=== PATIENT | female | born 1995 | race Caucasian/White ===

== ENCOUNTER 2017-12-18 20:18 | Emergency (ER) | payer SELFPAY ==
[2017-12-18] MEDS ORDERED: Ketorolac 30 MG/ML SDV ONE (20:58)
[2017-12-18] MEDS ORDERED: Ketorolac 30 MG/ML SDV IM ONE (21:12)
[2017-12-18] MEDS ORDERED: Methocarbamol 500 MG Tab ONE (21:50)
--- NOTE | 2017-12-18 22:11 | EDM.PDOC ---
ED HPI GENERAL MEDICAL PROBLEM - General Chief Complaint: Neck Problem Stated Complaint: NECK PAIN Time Seen by Provider: 12/18/17 20:47 Source of Information: Reports: Patient, RN History Limitations: Reports: No Limitations - History of Present Illness INITIAL COMMENTS - FREE TEXT/NARRATIVE: 22 yr female presents with pain to left side of neck. Neck spasms. She did take a Robaxin about 1 hour before coming to ER. States this neck spasm started this am and didn't get any better today. She tried heat and ice at home and Ibuprofen at home. Toradol 30 mg IM given and warm pack to neck applied. Recommend Aleve or Ibuprofen in 6- 8 hour as needed. Robaxin 500 mg PO every 6-8 hour as needed for neck spasm. Pt reports pain is better. Pt discharged to care of [id number]. Treatments RECORD LIBRARIAN: Reports: Other (see below) Other Treatments RECORD LIBRARIAN: Ibuprophen, ice pack, warm pack - Related Data Allergies Allergy/AdvReac Type Severity Reaction Status Date / Time Sulfa (Sulfonamide Allergy Cannot Verified 02/29/16 12:03 Antibiotics) Remember Home Meds: Home Meds Ciprofloxacin HCl [Cipro] 250 mg PO BID #14 tablet 02/29/16 [Rx] OLANZapine [Olanzapine] 0.25 mg PO DAILY 02/29/16 [History] ED ROS GENERAL - Review of Systems Review Of Systems: See Below Constitutional: Reports: No Symptoms HEENT: Reports: No Symptoms Respiratory: Reports: No Symptoms Cardiovascular: Reports: No Symptoms GI/Abdominal: Reports: No Symptoms Musculoskeletal: Reports: Neck Pain Skin: Reports: No Symptoms Neurological: Reports: No Symptoms Psychiatric: Reports: No Symptoms ED EXAM, UPPER BACK/NECK PAIN - Physical Exam Exam: See Below Exam Limited By: No Limitations General Appearance: Alert, No Apparent Distress Ears Exam: Hearing Grossly Normal Nose Exam: Normal Inspection Throat/Mouth Exam: Normal Inspection, Normal Voice, No Airway Compromise Head Exam: Atraumatic, Normocephalic Neck Exam: Limited Range of Motion, Muscle Spasm, Stiff Neck, Other (Pain with trying to turn head to left or head to shoulder.) Nexus Criteria: No: Evidence of Intoxication, Altered Level of Consciousness, Focal Neurological Deficit Cardiovascular/Respiratory: Regular Rate, Rhythm GI/Abdominal: Soft, Non-Tender Extremities: Normal Inspection, Normal Range of Motion, Non-Tender Neurologic: Alert, Normal Mood/Affect, Oriented x 3 Psychiatric: Normal Affect, Normal Mood Skin Exam: Normal Color, Warm/Dry Lymphatic: No Adenopathy Course - Orders/Labs/Meds Orders: Active Orders 24 hr Category Date Time Status C-Spine [Cervical Spine 2V or 3V] [CR] Stat Exams 12/18/17 20:32 Taken Meds: Medications Discontinued Medications Generic Name Dose Route Start Last Admin Trade Name Mague PRN Reason Stop Dose Admin Ketorolac Tromethamine Confirm 12/18/17 20:58 12/18/17 21:55 Toradol Administered 12/18/17 20:59 Not Given Dose 30 mg .ROUTE .STK-MED ONE Ketorolac Tromethamine 30 mg 12/18/17 21:12 12/18/17 20:55 Toradol IM 12/18/17 21:13 30 mg ONETIME ONE Administration - Re-Assessments/Exams Free Text/Narrative Re-Assessment/Exam: 12/18/17 22:13 May use Tylenol or Ibuprofen as needed, after 6-8 hour of Toradol IM. Robaxin RX given to take 1 tablet every 6-8 hour as needed for muscle spasms. Recommend heat to area. RTC or ER if symptoms worsen or persist. Departure - Departure Time of Disposition: 22:12 Disposition: Home, Self-Care 01 Condition: Good Clinical Impression: Torticollis - Discharge Information Referrals: PCP,None [Primary Care Provider] - - My Orders Last 24 Hours: My Active Orders 12/18/17 20:32 C-Spine [Cervical Spine 2V or 3V] [CR] Stat - Assessment/Plan Last 24 Hours: My Active Orders 12/18/17 20:32 C-Spine [Cervical Spine 2V or 3V] [CR] Stat
--- NOTE | 2017-12-19 08:06 | CR ---
DATE OF SERVICE: 12/18/2017 CLINICAL DATA: Neck pain. CERVICAL SPINE Normal exam. If the patient's symptoms persist, an MRI scan is recommended. [id number] [facility]
== END 2017-12-18 22:06 | disposition home or self-care (01) ==
LOC: LB.ED 20:18
DX: M43.6 Torticollis (principal); Z88.2 Allergy status to sulfonamides; Z79.899 Other long term (current) drug therapy
CPT/HCPCS: 72040; 96372; 99284; A9270; J1885; 99283

== ENCOUNTER 2018-09-20 15:45 | Emergency (ER) | payer MEDICAID ==
--- NOTE | 2018-09-20 16:56 | EDM.PDOC ---
ED HPI GENERAL MEDICAL PROBLEM - General Chief Complaint: SAMPLE PATTERNMAKER Problem Stated Complaint: No movement felt,35 wks Time Seen by Provider: 09/20/18 16:00 Source of Information: Reports: Patient History Limitations: Reports: No Limitations - History of Present Illness INITIAL COMMENTS - FREE TEXT/NARRATIVE: Pt is 22 year old at 35 wks IUP presents to emergency room as she has not felt the movements since last night. Pt claims he has been having dull low back pain for the past 2-3 days now. Pt has had uneventful care. Her OB-Inspector Final [employer] Conveyor Line is Dr. Whitt. No fever or chills. No nausea or vomiting.No vaginal bleeding. No Vaginal discharge. Onset Date: 09/20/18 Onset Time: 20:00 Improves with: Reports: None Worsens with: Reports: None Associated Symptoms: Denies: Confusion, Chest Pain, Cough, Diaphoresis, Fever/ Chills, Headaches, Nausea/Vomiting, Rash, Seizure, Shortness of Breath, Syncope , Weakness Lower Back Pain Score (Numeric/FACES): 3 - Related Data Allergies Allergy/AdvReac Type Severity Reaction Status Date / Time Sulfa (Sulfonamide Allergy Cannot Verified 09/20/18 16:08 Antibiotics) Remember Home Meds: Home Meds Ciprofloxacin HCl [Cipro] 250 mg PO BID #14 tablet 02/29/16 [Rx] OLANZapine [Olanzapine] 0.25 mg PO DAILY 02/29/16 [History] Past Medical History HEENT History: Reports: Other (See Below) Other HEENT History: pt has been seeing black spots on and off for the past 2 weeks pt is 15 months . SAMPLE PATTERNMAKER History: Reports: Other SAMPLE PATTERNMAKER History: currently 15 weeks Musculoskeletal History: Reports: None Psychiatric History: Reports: Anxiety Social & Family History - Family History Family Medical History: Noncontributory - Caffeine Use Caffeine Use: Reports: Tea ED ROS GENERAL - Review of Systems Review Of Systems: See Below Constitutional: Denies: Fever, Chills HEENT: Denies: Rhinitis, Throat Pain, Throat Swelling Respiratory: Denies: Cough, Sputum Cardiovascular: Denies: Chest Pain, Edema GI/Abdominal: Denies: Abdominal Pain, Nausea, Vomiting : Denies: Dysuria, Frequency, Hematuria Musculoskeletal: Denies: Joint Pain, Joint Swelling Skin: Denies: Bruising, Pruritis, Rash Neurological: Denies: Confusion, Dizziness, Headache, Numbness, Tingling ED EXAM, GENERAL - Physical Exam Exam: See Below Exam Limited By: No Limitations General Appearance: Alert, WD/WN, No Apparent Distress, Other (Gravid uterus) Eye Exam: Bilateral Eye: EOMI, PERRL Ears: Normal External Exam, Normal Canal, Hearing Grossly Normal, Normal TMs Ear Exam: Bilateral Ear: Auricle Normal, Canal Normal, TM normal Nose: Normal Inspection, Normal Mucosa, No Blood Throat/Mouth: Normal Inspection, Normal Lips, Normal Teeth, Normal Gums, Normal Oropharynx, Normal Voice, No Airway Compromise Head: Atraumatic, Normocephalic Neck: Normal Inspection, Supple, Non-Tender, Full Range of Motion Respiratory/Chest: No Respiratory Distress, Lungs Clear, Normal Breath Sounds, No Accessory Muscle Use, Chest Non-Tender Cardiovascular: Normal Peripheral Pulses, Regular Rate, Rhythm, No Edema, No Gallop, No JVD, No Murmur, No Rub (Female) Exam: Other (Gravid uteus, measures 33-34cms. Good heart sounds heard in the right lower quadrant. Also Tocomonior shows good variability of the heart tones between 130-160/minute. No contractions notes.). No: Uterine Tenderness, Vaginal Bleeding, Vaginal Discharge Course - Vital Signs Text/Narrative:: Pt was reassured. There was good Heart tones noted. Pt was given cup of orange juice to drink. I did feel good 4 movement with in the span for 10 minutes. Pt felt the movement too. Also I did do fast US and monitored for movements. Nara Visa-monitor was placed for 20 minutes, has good tone and good variability of heart tones between 130-160s. Pt reassured. advised to sleep on the left lateral side. Also pt might not feel strong kick but should feel slightly movement. CBC and UA are negative.Will get OB ultrasound on Friday. Advised to followup with her OB- LIDAR TECHNICIAN early next . Last Recorded V/S: Last Vital Signs Temp 98.6 F 09/20/18 15:56 Pulse 88 09/20/18 15:56 Resp 17 09/20/18 15:56 BP 127/71 09/20/18 15:56 Pulse Ox 98 09/20/18 15:56 - Orders/Labs/Meds Labs: Laboratory Tests 09/20/18 09/20/18 Range/Units 16:54 17:09 WBC 10.3 D (4.0-11.0) K/uL RBC 3.81 (3.80-5.80) M/uL Hgb 12.2 (11.5-16.5) g/dL Hct 35.4 L (37.0-47.0) % MCV 93 (76-96) fL MCH 32.0 (27.0-32.0) pg MCHC 34.5 (31.0-35.0) g/dL RDW 13.0 (11.0-16.0) % Plt Count 118 L (150-500) K/uL MPV 10.4 H (6.0-10.0) fL Neut % (Auto) 76.5 H (45.0-70.0) % Lymph % (Auto) 16.1 L (20.0-40.0) % [place] % (Auto) 7.0 (3.0-10.0) % Eos % (Auto) 0.3 L (1.0-5.0) % Baso % (Auto) 0.1 (0.0-0.5) % Neut # (Auto) 7.87 H (2.00-7.50) K/uL Lymph # (Auto) 1.65 (1.50-4.00) K/uL [place] # (Auto) 0.72 (0.20-0.80) K/uL Eos # (Auto) 0.03 L (0.04-0.40) K/uL Baso # (Auto) 0.01 L (0.02-0.10) K/uL Urine Color Yellow Urine Appearance Clear (CLEAR) Urine pH 6.5 (5.0-8.0) Ur Specific [place] 1.015 (1.003-1.030) Urine Protein Negative (NEGATIVE) mg/dL Urine Glucose (UA) Negative (NEGATIVE) mg/dL Urine Ketones Trace H (NEGATIVE) mg/dL Urine Occult Blood Negative (NEGATIVE) Urine Nitrite Negative (NEGATIVE) Urine Bilirubin Negative (NEGATIVE) Urine Urobilinogen 0.2 (0.2-1.0) E.U./dL Ur Leukocyte Esterase Negative (NEGATIVE) Urine RBC Not seen /HPF Urine WBC 5-10 H /HPF Ur Squamous Epith Cells Moderate /HPF Urine Bacteria Occasional /HPF Departure - Departure Time of Disposition: 17:20 Disposition: Home, Self-Care 01 Condition: Fair Clinical Impression: Decreased movement - Discharge Information *PRESCRIPTION DRUG MONITORING PROGRAM REVIEWED*: Not Applicable *COPY OF PRESCRIPTION DRUG MONITORING REPORT IN PATIENT SHAQ: Not Applicable Referrals: PCP,None [Primary Care Provider] - Forms: ED Department Discharge Additional Instructions: Pt was reassured. There was good Heart tones noted. Pt was given cup of orange juice to drink. I did feel good 4 movement with in the span for 10 minutes. Pt felt the movement too. Also I did do fast US and monitored for movements. Nara Visa-monitor was placed for 20 minutes, has good tone and good variability of heart tones between 130-160s. Pt reassured. advised to sleep on the left lateral side. Also pt might not feel strong kick but should feel slightly movement. CBC and UA are negative.Will get OB ultrasound on Friday. Advised to followup with her OB- LIDAR TECHNICIAN early next . Return to emergency room if she cannot feel movement or vaginal bleeding or discharge KEVON. True and false labor discussed. - Problem List & Annotations (1) Decreased movement SNOMED Code(s): 668752177 Code(s): O36.8190 - DECREASED MOVEMENTS, UNSP TRIMESTER, UNSP Status : Acute Current Visit: Yes - Problem List Review Problem List Initiated/Reviewed/Updated: Yes - Assessment/Plan Assessment:: at 35 wks IUP Norml movemen Plan: Pt was reassured. There was good Heart tones noted. Pt was given cup of orange juice to drink. I did feel good 4 movement with in the span for 10 minutes. Pt felt the movement too. Also I did do fast US and monitored for movements. Nara Visa-monitor was placed for 20 minutes, has good tone and good variability of heart tones between 130-160s. Pt reassured. advised to sleep on the left lateral side. Also pt might not feel strong kick but should feel slightly movement. CBC and UA are negative.Will get OB ultrasound on Friday. Advised to followup with her OB- LIDAR TECHNICIAN early next .
[2018-09-20 17:13] VITALS: BP 127/71
== END 2018-09-20 17:34 | disposition home or self-care (01) ==
LOC: LB.ED 15:45
DX: O36.8130 Decreased fetal movements, third trimester, not applicable or unspecified (principal); Z79.899 Other long term (current) drug therapy; Z88.2 Allergy status to sulfonamides; Z3A.35 35 weeks gestation of pregnancy
CPT/HCPCS: 36415; 81001; 85025; 99284

== ENCOUNTER 2018-11-05 10:19 | Emergency (ER) | payer MEDICAID, OTHER ==
[2018-11-05] MEDS ORDERED: Ketorolac 60 MG/2 ML SDV IVPUSH ONE (10:58)
[2018-11-05] MEDS ORDERED: Morphine 2 MG/ML Syringe IVPUSH ONE (11:12)
[2018-11-05] MEDS ORDERED: Ketorolac 30 MG/ML SDV ONE (11:13)
[2018-11-05] MEDS ORDERED: Morphine 2 MG/ML Syringe ONE (11:13)
[2018-11-05] MEDS ORDERED: Acetaminophen/HYDROcodone 325-5 MG Tab ONE (12:10)
--- NOTE | 2018-11-05 16:30 | CT ---
CLINICAL DATA: Abd pain. UNENHANCED ABDOMEN AND PELVIC CT, 05 NOV 2018: Multislice acquisition through the abdomen and pelvis without IV or oral contrast was performed. No priors. The lung bases are clear. The unenhanced liver appears normal. The gallbladder appears normal. The spleen appears normal. The pancreas appears normal. The right and left adrenals appear normal. The right and left kidneys appear normal. No nephrocalcinosis or nephrolithiasis. No hydronephrosis or hydroureter. The bladder is partially fluid-filled. It appears grossly normal. The uterus is grossly enlarged. The appendix is not dilated. No evidence of appendicitis. There is a large amount of gas and stool noted in the ascending colon and a large amount of stool noted within the sigmoid colon and rectum, consistent with constipation. There is mild mural thickening within the splenic flexure of the colon as well as the descending colon. This is probably related to non- distention. Colitis should be considered. No free air. No free fluid. No dilated loops of bowel. No adenopathy. No aortic aneurysm. There is an umbilical hernia containing fat. Job: [id number] MTDD
--- NOTE | 2018-11-05 18:27 | EDM.PDOC ---
ED HPI GENERAL MEDICAL PROBLEM - General Time Seen by Provider: 11/05/18 10:50 Source of Information: Reports: Patient, Family History Limitations: Reports: No Limitations - History of Present Illness INITIAL COMMENTS - FREE TEXT/NARRATIVE: This is a 23yo F here for b/l lower pelvic discomfort. Patient recently had an induced delivery of a healthy baby boy 14 days ago. Patient states the pain started this am and has been constant. Patient denies any injury, no intercourse and no illness. She has been . No other concerns. No diarrhea, some constipation and no nausea or vomiting. Patient denies any other issues. Onset: Today Duration: Hour(s): Location: Reports: Pelvis Quality: Reports: Ache Severity: Severe Improves with: Reports: None Worsens with: Reports: None Associated Symptoms: Reports: No Other Symptoms - Related Data Allergies Allergy/AdvReac Type Severity Reaction Status Date / Time Sulfa (Sulfonamide Allergy Cannot Verified 09/20/18 16:08 Antibiotics) Remember Home Meds: Home Meds Ciprofloxacin [Ciprofloxacin HCl] 500 mg PO BID #20 tab 11/05/18 [Rx] Hydrocodone/Acetaminophen [Hydrocodon-Acetaminophen 5-325] 1 each PO Q6HR #30 tablet 11/05/18 [Rx] metroNIDAZOLE [Metronidazole] 500 mg PO TID #30 tablet 11/05/18 [Rx] Past Medical History HEENT History: Reports: Other (See Below) Other HEENT History: pt has been seeing black spots on and off for the past 2 weeks pt is 15 months . Gastrointestinal History: Reports: None Genitourinary History: Reports: None LAY OUT FORMER History: Reports: Other LAY OUT FORMER History: currently 15 weeks Musculoskeletal History: Reports: None Neurological History: Reports: None Psychiatric History: Reports: Anxiety Endocrine/Metabolic History: Reports: None - Infectious Disease History Infectious Disease History: Reports: None Social & Family History - Family History Family Medical History: Noncontributory - Caffeine Use Caffeine Use: Reports: Tea Other Caffeine Use: Not taking anymore since pregnacy ED ROS GENERAL - Review of Systems Review Of Systems: ROS reveals no pertinent complaints other than HPI. Constitutional: Reports: No Symptoms HEENT: Reports: No Symptoms Respiratory: Reports: No Symptoms Cardiovascular: Reports: No Symptoms Endocrine: Reports: No Symptoms GI/Abdominal: Reports: Abdominal Pain : Reports: No Symptoms Musculoskeletal: Reports: No Symptoms Skin: Reports: No Symptoms Neurological: Reports: No Symptoms Psychiatric: Reports: No Symptoms ED EXAM, GI/ABD - Physical Exam Exam: See Below Exam Limited By: No Limitations General Appearance: Alert, WD/WN, No Apparent Distress Ears: Normal External Exam Nose: Normal Inspection Throat/Mouth: Normal Inspection Head: Atraumatic, Normocephalic Neck: Normal Inspection Respiratory/Chest: No Respiratory Distress, Lungs Clear, Normal Breath Sounds Cardiovascular: Normal Peripheral Pulses, Regular Rate, Rhythm GI/Abdominal Exam: Normal Bowel Sounds, Soft, Tender (b/l pelvic area) (Female) Exam: No: Vaginal Bleeding, Vaginal Discharge Back Exam: Normal Inspection Extremities: Normal Inspection Neurological: Alert, Oriented, CN II-XII Intact Course - Orders/Labs/Meds Meds: Medications Discontinued Medications Generic Name Dose Route Start Last Admin Trade Name Freq PRN Reason Stop Dose Admin Ketorolac Tromethamine Confirm 11/05/18 11:13 11/05/18 11:32 Toradol Administered 11/05/18 11:14 Not Given Dose 30 mg .ROUTE .STK-MED ONE Ketorolac Tromethamine 15 mg 11/05/18 10:58 11/05/18 10:58 Toradol IVPUSH 11/05/18 10:59 15 mg ONETIME ONE Administration Morphine Sulfate Confirm 11/05/18 11:13 11/05/18 11:31 Morphine Administered 11/05/18 11:14 Not Given Dose 2 mg .ROUTE .STK-MED ONE Morphine Sulfate 2 mg 11/05/18 11:12 11/05/18 11:12 Morphine IVPUSH 11/05/18 11:13 2 mg ONETIME ONE Administration Departure - Departure Time of Disposition: 13:00 Disposition: Home, Self-Care 01 Condition: Undetermined Clinical Impression: Colitis - Discharge Information Prescriptions: Hydrocodone/Acetaminophen [Hydrocodon-Acetaminophen 5-325] 1 each PO Q6HR #30 tablet Ciprofloxacin [Ciprofloxacin HCl] 500 mg PO BID #20 tab metroNIDAZOLE [Metronidazole] 500 mg PO TID #30 tablet Instructions: Near-Syncope, [id number], Contusion, [id number], Colitis, Hematoma, [id number] Referrals: PCP,None [Primary Care Provider] - Additional Instructions: Return to ER if eye pain or pressure. Cold pack to L eye hematoma . - Problem List & Annotations (1) Colitis SNOMED Code(s): 16551598 Code(s): K52.9 - NONINFECTIVE GASTROENTERITIS AND COLITIS, UNSPECIFIED Status: Acute Priority: High - Problem List Review Problem List Initiated/Reviewed/Updated: Yes - Assessment/Plan Plan: Discussed oral antibiotics management and continued close monitoring and f/u. Discussed pain management and side effects. Discussed effects with meds. Patient will not breastfeed while on her medications. Discussed close f/u if symptoms persist or worsen for rtc or ER f/u for recheck and scan as needed.
== END 2018-11-05 12:12 | disposition home or self-care (01) ==
LOC: LB.ED 10:19
DX: O99.63 Diseases of the digestive system complicating the puerperium (principal); K52.9 Noninfective gastroenteritis and colitis, unspecified; Z88.2 Allergy status to sulfonamides
CPT/HCPCS: 74176; 99284; A9270; J1885; J2270

== ENCOUNTER 2018-11-06 22:55 | Emergency (ER) | payer MEDICAID ==
[2018-11-06 23:32] VITALS: BP 113/73
--- NOTE | 2018-11-06 23:42 | EDM.PDOC ---
ED HPI GENERAL MEDICAL PROBLEM - General Chief Complaint: General Stated Complaint: abd pain with fever Time Seen by Provider: 11/06/18 23:30 Source of Information: Reports: Patient History Limitations: Reports: No Limitations - History of Present Illness INITIAL COMMENTS - FREE TEXT/NARRATIVE: According to patient she claims that she has been having lower abdominal pain since yesterday. Pain is dull achy and cramping. No nausea or vomiting. Did have some abdominal distension . Was seen yesterday and had CT abdomen and started on cipro and flagyl for colitis and also Vicodin for pain. Pt is here today as she has cramping lower abdominal pain. And had a temp of 100.2 F early today. No nausea or vomiting. No diarrhea. She claims her stools are hard and she has stated taking colace since yesterday. No diarrhea. Onset: Gradual Onset Date: 11/06/18 Location: Reports: Abdomen Quality: Reports: Ache Severity: Mild Improves with: Reports: None Worsens with: Reports: None Associated Symptoms: Denies: Confusion, Chest Pain, Cough, Diaphoresis, Fever/ Chills, Nausea/Vomiting, Rash, Seizure, Shortness of Breath, Syncope, Weakness - Related Data Allergies Allergy/AdvReac Type Severity Reaction Status Date / Time Sulfa (Sulfonamide Allergy Cannot Verified 11/06/18 22:58 Antibiotics) Remember Home Meds: Home Meds Ciprofloxacin [Ciprofloxacin HCl] 500 mg PO BID #20 tab 11/05/18 [Rx] Hydrocodone/Acetaminophen [Hydrocodon-Acetaminophen 5-325] 1 each PO Q6HR #30 tablet 11/05/18 [Rx] metroNIDAZOLE [Metronidazole] 500 mg PO TID #30 tablet 11/05/18 [Rx] Past Medical History HEENT History: Reports: Other (See Below) Other HEENT History: pt has been seeing black spots on and off for the past 2 weeks pt is 15 months . 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 Denies: Chills, Weakness HEENT: Denies: Ear Pain, Rhinitis, Throat Pain Respiratory: Denies: Cough, Sputum Cardiovascular: Denies: Chest Pain, Lightheadedness GI/Abdominal: Reports: Abdominal Pain, Constipation, Hematemesis. Denies: Black Stool, Diarrhea, Nausea, Vomiting : Denies: Dysuria, Frequency Musculoskeletal: Denies: Joint Pain, Joint Swelling Neurological: Denies: Confusion, Dizziness, Headache, Numbness, Tingling ED EXAM, GENERAL - Physical Exam Exam: See Below Exam Limited By: No Limitations General Appearance: Alert, WD/WN, No Apparent Distress Ears: Normal External Exam, Normal Canal, Hearing Grossly Normal, Normal TMs Nose: Normal Inspection, Normal Mucosa, No Blood Throat/Mouth: Normal Inspection, Normal Lips, Normal Teeth, Normal Gums, Normal Oropharynx, Normal Voice, No Airway Compromise Head: Atraumatic, Normocephalic Neck: Normal Inspection, Supple, Non-Tender, Full Range of Motion Respiratory/Chest: No Respiratory Distress, Lungs Clear, Normal Breath Sounds, No Accessory Muscle Use, Chest Non-Tender Cardiovascular: Normal Peripheral Pulses, Regular Rate, Rhythm, No Edema, No Gallop, No JVD, No Murmur, No Rub GI/Abdominal: Normal Bowel Sounds, Soft, No Organomegaly, No Distention, No Abnormal Bruit, No Mass, Tender (superficial tenderness in the lower abdomen. Normal bowel sounds heard.). No: Guarding, Rigid, Rebound Course - Vital Signs Text/Narrative:: Pt has had 2 day history of lower abdominal pain. And she has been having hard stool. Her CT abdomen done yesterday shows large amount of fecal matter with gas in the ascending ,transverse and descending colon. the rest of the colon is colapsed and hence the mural wall appears thickened. She does not have watery stool or mucusy stool to have colitis . Her CBC today appears normal. The ow grade fever can be related to inflammatory reaction from constipation too. Her CBC appears normal. Pt reassured. she has constipation related pain and the pain is from the colon as most of her pain is in the lower abdomen. I do not think there is need for patient to be on Cipro and Flagyl. I have advised patient to stop them. Also Vicodin for a patient with constipation can make her colon pain worse and also increase risk of constipation of decrease intestinal motility and results in colonic obstruction. Advised to stop. Miralax 1 tablespoon with 6 oz of water. Tylenol for fever. Increase oral hydration.. Return to emergency room, if she develops severe abdominal distension, absent flatus, nausea or vomiting. Last Recorded V/S: Last Vital Signs Temp 99.2 F 11/06/18 23:22 Pulse 119 H 11/06/18 23:22 Resp 16 11/06/18 23:22 BP 113/73 11/06/18 23:22 Pulse Ox 98 11/06/18 23:22 - Orders/Labs/Meds Orders: Active Orders 24 hr Category Date Time Status CBC WITH AUTO DIFF [HEME] Stat Lab 11/06/18 23:31 Ordered Departure - Departure Time of Disposition: 23:55 Disposition: Home, Self-Care 01 Condition: Fair Clinical Impression: Constipation - Discharge Information *PRESCRIPTION DRUG MONITORING PROGRAM REVIEWED*: Not Applicable *COPY OF PRESCRIPTION DRUG MONITORING REPORT IN PATIENT SHAQ: Not Applicable - Problem List & Annotations (1) Constipation SNOMED Code(s): 51976941 Code(s): K59.00 - CONSTIPATION, UNSPECIFIED Status: Acute Current Visit: Yes - Problem List Review Problem List Initiated/Reviewed/Updated: Yes - My Orders Last 24 Hours: My Active Orders 11/06/18 23:31 CBC WITH AUTO DIFF [HEME] Stat - Assessment/Plan Last 24 Hours: My Active Orders 11/06/18 23:31 CBC WITH AUTO DIFF [HEME] Stat Assessment:: Constipation Plan: Pt has had 2 day history of lower abdominal pain. And she has been having hard stool. Her CT abdomen done yesterday shows large amount of fecal matter with gas in the ascending ,transverse and descending colon. the rest of the colon is colapsed and hence the mural wall appears thickened. She does not have watery stool or mucusy stool to have colitis . Her CBC today appears normal. The ow grade fever can be related to inflammatory reaction from constipation too. Her CBC appears normal. Pt reassured. she has constipation related pain and the pain is from the colon as most of her pain is in the lower abdomen. I do not think there is need for patient to be on Cipro and Flagyl. I have advised patient to stop them. Also Vicodin for a patient with constipation can make her colon pain worse and also increase risk of constipation of decrease intestinal motility and results in colonic obstruction. Advised to stop. Miralax 1 tablespoon with 6 oz of water. Tylenol for fever. Increase oral hydration.. Return to emergency room, if she develops severe abdominal distension, absent flatus, nausea or vomiting.
== END 2018-11-06 23:56 | disposition home or self-care (01) ==
LOC: LB.ED 22:55
DX: O99.612 Diseases of the digestive system complicating pregnancy, second trimester (principal); K59.00 Constipation, unspecified; Z3A.15 15 weeks gestation of pregnancy; Z88.2 Allergy status to sulfonamides
CPT/HCPCS: 36415; 85025; 99284

== ENCOUNTER 2019-01-24 13:54 | Emergency (ER) | payer MEDICAID ==
[2019-01-24 14:16] VITALS: BP 107/66; PULSE 80
[2019-01-24] MEDS ORDERED: diazePAM 5 MG/ML MDV IV ONE (14:23)
[2019-01-24] MEDS ORDERED: Ketorolac 60 MG/2 ML SDV IM ONE (14:23)
[2019-01-24] MEDS ORDERED: Methocarbamol 500 MG Tab ONE (14:35)
[2019-01-24] MEDS ORDERED: Lidocaine 1% 10 ML MDV INJECT ONE (16:54)
[2019-01-24] MEDS ORDERED: Bupivacaine 0.5% 10 ML SDV INJECT ONE (16:54)
[2019-01-24] MEDS ORDERED: Triamcinolone Acetonide 40 MG/ML 1 ML MDV INJECT ONE (16:54)
--- NOTE | 2019-01-24 21:21 | EDM.PDOC ---
ED HPI GENERAL MEDICAL PROBLEM - General Chief Complaint: General Stated Complaint: MUSCEL STRAIN Time Seen by Provider: 01/24/19 14:30 Source of Information: Reports: Patient, Family History Limitations: Reports: No Limitations - History of Present Illness INITIAL COMMENTS - FREE TEXT/NARRATIVE: This is a 23yo F here for right shoulder pain and muscle spasm. She has had prior muscle spasms of the left shoulder in the past. She is having difficulty moving the right shoulder. She has a and has been frequently lifting and is usually held in the right arm. Onset: Gradual Duration: Day(s):, Getting Worse Location: Reports: Upper Extremity, Right, Other (shoulder- right) Quality: Reports: Ache Severity: Moderate Improves with: Reports: None Worsens with: Reports: Movement Context: Reports: Activity Associated Symptoms: Reports: No Other Symptoms right shoulder Pain Score (Numeric/FACES): 10 - Related Data Allergies Allergy/AdvReac Type Severity Reaction Status Date / Time Sulfa (Sulfonamide Allergy Cannot Verified 01/24/19 14:16 Antibiotics) Remember Home Meds: Home Meds Ciprofloxacin [Ciprofloxacin HCl] 500 mg PO BID #20 tab 11/05/18 [Rx] Hydrocodone/Acetaminophen [Hydrocodon-Acetaminophen 5-325] 1 each PO Q6HR #30 tablet 11/05/18 [Rx] metroNIDAZOLE [Metronidazole] 500 mg PO TID #30 tablet 11/05/18 [Rx] Past Medical History HEENT History: Reports: Other (See Below) Other HEENT History: pt has been seeing black spots on and off for the past 2 weeks pt is 15 months . 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 ED EXAM, GENERAL - Physical Exam Exam: See Below Exam Limited By: No Limitations General Appearance: Alert, WD/WN, Moderate Distress Eye Exam: Bilateral Eye: EOMI, PERRL Ears: Normal External Exam Nose: Normal Inspection Throat/Mouth: Normal Inspection Head: Atraumatic, Normocephalic Neck: Normal Inspection Respiratory/Chest: No Respiratory Distress Cardiovascular: Normal Peripheral Pulses Extremities: Normal Inspection Neurological: Alert, Oriented Psychiatric: Normal Affect, Normal Mood Skin Exam: Warm, Dry, Intact ED GENERAL MEDICAL PROCEDURES - Additional/Other Procedure(s) Other (Free Text) Procedure(s): Right upper shoulder prepped sterilely. Injected 2-2-2 27ga of the right scalene area due to muscular spasm and pain. Patient tolerated procedure well with no complications. Course - Vital Signs Last Recorded V/S: Last Vital Signs Temp 37.1 C 01/24/19 14:08 Pulse 80 01/24/19 14:08 Resp 16 01/24/19 14:08 BP 107/66 01/24/19 14:08 Pulse Ox 100 01/24/19 14:08 - Orders/Labs/Meds Meds: Medications Discontinued Medications Generic Name Dose Route Start Last Admin Trade Name Mague PRN Reason Stop Dose Admin Bupivacaine HCl 2 ml 01/24/19 16:54 01/24/19 14:30 Sensorcaine-Mpf 0.5% INJECT 01/24/19 16:55 2 ml ONETIME ONE Administration Diazepam 5 mg 01/24/19 14:23 01/24/19 14:26 Valium IV 01/24/19 14:24 5 mg ONETIME ONE Administration Ketorolac Tromethamine 60 mg 01/24/19 14:23 01/24/19 14:26 Toradol IM 01/24/19 14:24 60 mg ONETIME ONE Administration Lidocaine HCl 2 ml 01/24/19 16:54 01/24/19 14:30 Xylocaine 1% INJECT 01/24/19 16:55 2 ml ONETIME ONE Administration Triamcinolone Acetonide 80 mg 01/24/19 16:54 01/24/19 14:30 Kenalog-40 INJECT 01/24/19 16:55 80 mg ONETIME ONE Administration Departure - Departure Time of Disposition: 15:00 Disposition: Home, Self-Care 01 Condition: Good Clinical Impression: Muscle spasm - Discharge Information Instructions: Shoulder Pain, Trigger Point Injection, Ketorolac injection, Diazepam injection, Heat Therapy, Cryotherapy Forms: ED Department Discharge Additional Instructions: Take the methocarbamol as needed for relaxation. Use motrin (ibuprofen) every 6- 8 hours as needed for the discomfort. May use either cold or hot packs. Follow up in the clinic or ER if you have any questions or concerns. - Problem List & Annotations (1) Muscle spasm SNOMED Code(s): 09329784 Code(s): M62.838 - OTHER MUSCLE SPASM Status: Acute - Problem List Review Problem List Initiated/Reviewed/Updated: Yes - Assessment/Plan Plan: Counseled on spasm of the right shoulder. Discussed supportive and conservative therapy. Counseled on medications and side effects of methocarbamol and valium. Discussed toradol injection as well. Counseled on f/u if symptoms persist or worsen. F/u as needed.
== END 2019-01-24 14:45 | disposition home or self-care (01) ==
LOC: LB.ED 13:54
DX: M62.838 Other muscle spasm (principal); Z88.2 Allergy status to sulfonamides
CPT/HCPCS: 20552; 96372; 99283; A9270; J1885; J2001; J3301; J3360; J3490

== ENCOUNTER → 2019-04-29 | Outpatient (CLI) | payer MEDICAID ==
--- NOTE | 2019-04-30 09:14 | US ---
DATE OF SERVICE: 04/29/19 CLINICAL DATA: Irregular menstruation, unspecified,Dysmenorrhea, unspecified PELVIC ULTRASOUND: The uterus measures 8.0 x 4.0 x 4.8 cm. It is normal in echogenicity. The endometrium measures 10 mm in thickness. The right ovary measures 3.3 x 2.5 x 2.2 cm. The left ovary measures 3.9 x 2.7 x 2.5 cm. There are cysts noted in both ovaries. The largest is within the left ovary and measures 2.0 cm in diameter. No solid adnexal masses. No free fluid. [id number] MTDD
== END ==
LOC: LB.US 10:21
PROVIDERS: ATTEND Nurse Practitioner Family
DX: N92.6 Irregular menstruation, unspecified (principal); N94.6 Dysmenorrhea, unspecified; N83.201 Unspecified ovarian cyst, right side; N83.202 Unspecified ovarian cyst, left side
CPT/HCPCS: 76830; 76856

== ENCOUNTER 2020-04-09 14:00 | Emergency (ER) | payer SELFPAY | END 2020-04-09 14:20 | disposition left against medical advice (07) | LOC: LB.ED 14:00 | DX: Z53.21 Procedure and treatment not carried out due to patient leaving prior to being seen by health care provider (principal) ==

== ENCOUNTER 2020-10-07 17:55 | Emergency (ER) | payer MEDICAID ==
[2020-10-07] MEDS ORDERED: Levofloxacin 750 MG Tab ONE (18:03)
[2020-10-07 18:08] VITALS: BP 125/87
--- NOTE | 2020-10-07 18:21 | EDM.PDOC ---
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 Hercules is 7 days post by C- section with twins. Today she has concerns of still passing clots with light headedness and nausea/ vomiting.HR is 108. Normal rhythm. Lungs CTA. No diarrhea. No fever, No abdominal pain or guarding. Uterus is normal size and configuration. scare is healing well with no infection noted. No erythema or wound seepage. She has not taken anything for her symptoms they began 2 days ago. Onset: Gradual Onset Date: 10/05/20 Duration: Day(s):, Waxing/Waning Location: Reports: Head, Abdomen, Generalized Severity: Moderate Improves with: Reports: None Worsens with: Reports: None Associated Symptoms: Reports: No Other Symptoms - Related Data Allergies Allergy/AdvReac Type Severity Reaction Status Date / Time Sulfa (Sulfonamide Allergy Cannot Verified 10/07/20 19:09 Antibiotics) Remember Home Meds: Home Meds Hydrocodone/Acetaminophen [Hydrocodon-Acetaminophen 5-325] 1 each PO Q6HR #30 tablet 11/05/18 [Rx] Past Medical History HEENT History: Reports: Other (See Below) Other HEENT History: pt has been seeing black spots on and off for the past 2 weeks pt is 15 months . 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 GI/Abdominal: Reports: Decreased Appetite, Nausea, Vomiting ED EXAM, GENERAL - Physical Exam Exam: See Below Exam Limited By: No Limitations General Appearance: Alert, WD/WN, No Apparent Distress Eye Exam: Bilateral Eye: PERRL Nose: Normal Inspection, Normal Mucosa, No Blood Throat/Mouth: Normal Inspection, Normal Lips, Normal Teeth Head: Atraumatic, Normocephalic Neck: Normal Inspection, Supple, Non-Tender Respiratory/Chest: No Respiratory Distress, Lungs Clear, Normal Breath Sounds Cardiovascular: Normal Peripheral Pulses GI/Abdominal: Normal Bowel Sounds, Soft, Non-Tender (Female) Exam: Other (Normal post uterus and vaginal secretions. ) Back Exam: Normal Inspection Extremities: Normal Inspection Neurological: Alert, Oriented, CN II-XII Intact Psychiatric: Normal Affect, Normal Mood Skin Exam: Warm, Dry, Intact, Normal Color Lymphatic: No Adenopathy (mild rash where surgical tape was recently applied, healing well now.) Course - Vital Signs Last Recorded V/S: Last Vital Signs Temp 35.9 C L 10/07/20 18:00 Pulse 96 10/07/20 20:24 Resp 16 10/07/20 20:24 BP 125/87 10/07/20 18:00 Pulse Ox 100 10/07/20 20:24 - Orders/Labs/Meds Labs: Laboratory Tests 10/07/20 10/07/20 10/07/20 Range/Units 18:03 18:03 18:15 WBC 11.6 H (4.0-11.0) K/uL RBC 4.29 (3.80-5.80) M/uL Hgb 13.3 (11.5-16.5) g/dL Hct 38.9 (37.0-47.0) % MCV 91 (76-96) fL MCH 31.0 (27.0-32.0) pg MCHC 34.2 (31.0-35.0) g/dL RDW 13.1 (11.0-16.0) % Plt Count 262 D (150-500) K/uL MPV 9.2 (6.0-10.0) fL Neut % (Auto) 76.8 H (45.0-70.0) % Lymph % (Auto) 14.8 L (20.0-40.0) % Phillips % (Auto) 7.3 (3.0-10.0) % Eos % (Auto) 0.9 L (1.0-5.0) % Baso % (Auto) 0.2 (0.0-0.5) % Neut # (Auto) 8.90 H (2.00-7.50) K/uL Lymph # (Auto) 1.72 (1.50-4.00) K/uL Phillips # (Auto) 0.85 H (0.20-0.80) K/uL Eos # (Auto) 0.10 (0.04-0.40) K/uL Baso # (Auto) 0.02 (0.02-0.10) K/uL Sodium 140 (136-145) mmol/L Potassium 3.5 (3.5-5.1) mmol/L Chloride 103 (98-107) mmol/L Carbon Dioxide 25.3 (21.0-32.0) mmol/L Anion Gap 15.2 H (5.0-15.0) mmol/L BUN 10 D (8-26) mg/dL Creatinine 0.73 D (0.55-1.02) mg/dL Est Cr Clr Drug Dosing 108.37 mL/min Estimated GFR (MDRD) > 60 (>60) MLS/MIN BUN/Creatinine Ratio 13.7 (6-25) Glucose 106 H (74-100) mg/dL Calcium 8.9 (8.5-10.1) mg/dL Total Bilirubin 0.4 D (0.0-1.0) mg/dL AST 15 (15-37) U/L ALT 20 (12-78) U/L Alkaline Phosphatase 121 H (46-116) U/L Total Protein 6.9 (6.4-8.2) g/dL Albumin 3.2 L (3.4-5.0) g/dL Globulin 3.7 (2.2-4.2) g/dL Albumin/Globulin Ratio 0.9 (0.8-2.0) Urine Color Yellow Urine Appearance Clear (CLEAR) Urine pH 6.0 (5.0-8.0) Ur Specific [place] 1.025 (1.003-1.030) Urine Protein 30 H (NEGATIVE) mg/dL Urine Glucose (UA) Negative (NEGATIVE) mg/dL Urine Ketones Negative (NEGATIVE) mg/dL Urine Occult Blood Moderate H (NEGATIVE) Urine Nitrite Negative (NEGATIVE) Urine Bilirubin Negative (NEGATIVE) Urine Urobilinogen 0.2 (0.2-1.0) E.U./dL Ur Leukocyte Esterase Small H (NEGATIVE) Urine RBC 0-5 H /HPF Urine WBC 10-20 H /HPF Ur Squamous Epith Cells Few /HPF SARS-CoV-2 RNA (JOSH) (NEGATIVE) 10/07/20 Range/Units 18:34 WBC (4.0-11.0) K/uL RBC (3.80-5.80) M/uL Hgb (11.5-16.5) g/dL Hct (37.0-47.0) % MCV (76-96) fL MCH (27.0-32.0) pg MCHC (31.0-35.0) g/dL RDW (11.0-16.0) % Plt Count (150-500) K/uL MPV (6.0-10.0) fL Neut % (Auto) (45.0-70.0) % Lymph % (Auto) (20.0-40.0) % Phillips % (Auto) (3.0-10.0) % Eos % (Auto) (1.0-5.0) % Baso % (Auto) (0.0-0.5) % Neut # (Auto) (2.00-7.50) K/uL Lymph # (Auto) (1.50-4.00) K/uL Phillips # (Auto) (0.20-0.80) K/uL Eos # (Auto) (0.04-0.40) K/uL Baso # (Auto) (0.02-0.10) K/uL Sodium (136-145) mmol/L Potassium (3.5-5.1) mmol/L Chloride (98-107) mmol/L Carbon Dioxide (21.0-32.0) mmol/L Anion Gap (5.0-15.0) mmol/L BUN (8-26) mg/dL Creatinine (0.55-1.02) mg/dL Est Cr Clr Drug Dosing mL/min Estimated GFR (MDRD) (>60) MLS/MIN BUN/Creatinine Ratio (6-25) Glucose (74-100) mg/dL Calcium (8.5-10.1) mg/dL Total Bilirubin (0.0-1.0) mg/dL AST (15-37) U/L ALT (12-78) U/L Alkaline Phosphatase (46-116) U/L Total Protein (6.4-8.2) g/dL Albumin (3.4-5.0) g/dL Globulin (2.2-4.2) g/dL Albumin/Globulin Ratio (0.8-2.0) Urine Color Urine Appearance (CLEAR) Urine pH (5.0-8.0) Ur Specific [place] (1.003-1.030) Urine Protein (NEGATIVE) mg/dL Urine Glucose (UA) (NEGATIVE) mg/dL Urine Ketones (NEGATIVE) mg/dL Urine Occult Blood (NEGATIVE) Urine Nitrite (NEGATIVE) Urine Bilirubin (NEGATIVE) Urine Urobilinogen (0.2-1.0) E.U./dL Ur Leukocyte Esterase (NEGATIVE) Urine RBC /HPF Urine WBC /HPF Ur Squamous Epith Cells /HPF SARS-CoV-2 RNA (JOSH) Negative (NEGATIVE) Meds: Medications Discontinued Medications Generic Name Dose Route Start Last Admin Trade Name Freq PRN Reason Stop Dose Admin Sodium Chloride 1,000 mls @ 999 mls/hr 10/07/20 18:32 10/07/20 18:36 Normal Saline IV 10/07/20 19:32 999 mls/hr .BOLUS ONE Administration Levofloxacin/Dextrose 750 mg/ 300 mls @ 100 mls/hr 10/07/20 18:41 10/07/20 18:47 Levofloxacin/Dextrose IV 10/07/20 21:40 100 mls/hr ONETIME ONE Administration Levofloxacin/Dextrose Confirm 10/07/20 18:47 10/07/20 18:54 Levaquin In D5w 750 Mg/150 Ml Administered 10/07/20 18:48 Not Given Dose 150 mls @ as directed IV .STK-MED ONE Levofloxacin Confirm 10/07/20 19:37 10/07/20 20:12 Levofloxacin 750 Mg Tab Administered 10/07/20 19:38 Not Given Dose 3,750 mg .ROUTE .STK-MED ONE Departure - Departure Time of Disposition: 20:15 Disposition: Home, Self-Care 01 Condition: Good Clinical Impression: Acute UTI (urinary tract infection) UTI (urinary tract infection) Qualifiers: Urinary tract infection type: acute cystitis Hematuria presence: without hematuria Qualified Code(s): N30.00 - Acute cystitis without hematuria - Discharge Information *PRESCRIPTION DRUG MONITORING PROGRAM REVIEWED*: Not Applicable *COPY OF PRESCRIPTION DRUG MONITORING REPORT IN PATIENT SHAQ: Not Applicable Instructions: Urinary Tract Infection, Adult Referrals: PCP,None [Primary Care Provider] - Forms: ED Department Discharge Additional Instructions: Treat with IV Abx 750 Levaquin. Send home with additional OP treatment. Increase fluid intake. Take OTC Crooks Bismuth for nausea. F/U with OB and or PCP next week. Return to ED for new or worsening symptoms. Sepsis Event Note (ED) - Evaluation Sepsis Screening Result: Possible Sepsis Risk - Problem List & Annotations (1) UTI (urinary tract infection) SNOMED Code(s): 94669905 Code(s): N39.0 - URINARY TRACT INFECTION, SITE NOT SPECIFIED Status: Acute Priority: Medium Qualifiers: Urinary tract infection type: acute cystitis Hematuria presence: without hematuria Qualified Code(s): N30.00 - Acute cystitis without hematuria - Assessment/Plan Assessment:: Acute UTI post . Plan: Treat with IV Abx 750 Levaquin. Send home with additional OP treatment. Increase fluid intake. Take OTC Crooks Bismuth for nausea. F/U with OB and or PCP next week. Return to ED for new or worsening symptoms.
[2020-10-07] MEDS: Sodium Chloride 0.9% 1,000 ML IV ONE (18:36)
[2020-10-07] MEDS: Levofloxacin/Dextrose 5%-Water 750 MG in Levofloxacin/Dextrose 5%-Water 150 ML IV ONE (18:47)
[2020-10-07] MEDS: Levofloxacin/Dextrose 5%-Water 150 ML IV ONE (18:54)
[2020-10-07] MEDS: Levofloxacin 750 MG Tab ONE (20:12)
[2020-10-07 20:40] VITALS: PULSE 96
== END 2020-10-07 20:30 | disposition home or self-care (01) ==
LOC: LB.ED 17:55
DX: O86.22 Infection of bladder following delivery (principal); Z88.2 Allergy status to sulfonamides; Z20.822 Contact with and (suspected) exposure to COVID-19
CPT/HCPCS: 36415; 80053; 81001; 85025; 96365; 96366; 99284-25; A9270-GY; J1956; J7030; U0002

== ENCOUNTER 2021-09-14 17:49 | Emergency (ER) | payer MEDICAID ==
[2021-09-14 18:10] VITALS: BP 124/87; PULSE 94
[2021-09-14] MEDS: Ketorolac 60 MG/2 ML SDV IM ONE (18:25)
[2021-09-14] MEDS: Ketorolac 60 MG/2 ML SDV ONE (18:26)
== END 2021-09-14 19:19 | disposition home or self-care (01) ==
LOC: LB.ED 17:49
DX: R09.1 Pleurisy (principal); Z88.2 Allergy status to sulfonamides; Z20.822 Contact with and (suspected) exposure to COVID-19
CPT/HCPCS: 36415; 71045; 80053; 84484; 85025; 87635; 93005; 96372; 99284; J1885; U0002